=== PATIENT | female | born 1940 | race Caucasian/White ===

== ENCOUNTER 2017-03-31 15:35 | Emergency (ER) | payer OTHER ==
[2017-03-31 15:45] VITALS: BP 129/66; PULSE 66; TEMP 98.1; BMI 32.5
--- NOTE | 2017-03-31 16:04 | PDOC ---
History of Present Illness - General History Source: Patient Exam Limitations: No Limitations - History of Present Illness Initial Comments: 03/31/17 16:17 76 y/o F with a PMHx of arthritis, HLD, hypothyroidism presents to the ED with right posterior knee pain for a week. Patient states that the pain wakes her up 3-4 times a night. She states the pain is constant. She reports it occasionally radiates down her right calf. She also reports the pain is worse after she is immobile for a while and then moves. She reports taking Tylenol with no relief, and Aleve with some relief. She states she went to urgent care last night for the pain, and they told her to come to the ED to rule out DVT. She attempted to call her PCP and her knee doctor, but both were away so she decided to come to the ED today. She denies swelling, redness. She denies recent travel. She denies injury to the knee. Denies chest pain, SOB, headache. PCP: Dr. Allan Perdomo <Lisandra Henning - Last Filed: 03/31/17 17:15> <Gabriel Moncada - Last Filed: 03/31/17 17:29> - General Chief Complaint: Pain Stated Complaint: PAIN BEHIND RT KNEE Time Seen by Provider: 03/31/17 15:44 Past History <Lisandra Henning - Last Filed: 03/31/17 17:15> - Past Medical History Anemia: No Asthma: No Cancer: No Cardiac Disorders: No CVA: No COPD: No CHF: No Dementia: No Diabetes: No GI Disorders: Yes (GERD) Disorders: No HTN: No Hypercholesterolemia: Yes Liver Disease: No Seizures: No Thyroid Disease: Yes (HYPOTHYROIDISM) Other medical history: ARTHRITIS RT KNEE, BACK PAIN - Surgical History Abdominal Surgery: Yes Appendectomy: Yes (2007) Cardiac Surgery: No Cholecystectomy: No Lung Surgery: No Neurologic Surgery: No Orthopedic Surgery: Yes (DUPYTREN'S SX BILATERAL HANDS 2011) - Psycho/Social/Smoking Cessation Hx Suicidal Ideation: No Smoking History: Former smoker Have you smoked in the past 12 months: No Number of Cigarettes Smoked Daily: 0 If you are a former smoker, when did you quit?: 1999 Information on smoking cessation initiated: No Hx Alcohol Use: No Drug/Substance Use Hx: No Substance Use Type: Alcohol Hx Substance Use Treatment: No <GreggzarinaVinnie [email or web address] - Last Filed: 03/31/17 17:29> - Past Medical History Allergies/Adverse Reactions: Allergies Allergy/AdvReac Type Severity Reaction Status Date / Time No Known Drug Allergies Allergy Verified 03/31/17 15:36 Home Medications: Ambulatory Orders Levothyroxine [Synthroid -] 112 mcg PO DAILY 09/11/14 Omeprazole [Prilosec (RX)] 20 mg PO BID 09/11/14 Simvastatin [Zocor] 80 mg PO HS 09/11/14 Alendronate Na [Fosamax (Weekly)] 70 mg PO Q7D 03/31/17 Aspirin [Aspirin EC] 81 mg PO DAILY 03/31/17 Citalopram Hydrobromide [Celexa -] 20 mg PO DAILY 03/31/17 Gabapentin [Neurontin] 800 mg PO BID 03/31/17 Naproxen [Naprosyn -] 500 mg PO BID #20 tablet 03/31/17 Tramadol HCl [Ultram] 50 mg PO BID PRN #10 tablet MDD 2 03/31/17 Venlafaxine HCl ER [Effexor Xr -] 37.5 mg PO DAILY 03/31/17 Review of Systems - Review of Systems Constitutional: No: Chills, Fever Respiratory: No: Cough, Shortness of Breath Cardiac (ROS): No: Chest Pain, Palpitations Musculoskeletal: Yes: Joint Pain Neurological: No: Tingling, Weakness <Vinnie Moncadafaele - Last Filed: 03/31/17 17:29> *Physical Exam - Vital Signs Last Vital Signs Temp Pulse Resp BP Pulse Ox 98.1 F 66 18 129/66 97 03/31/17 15:35 03/31/17 15:35 03/31/17 15:35 03/31/17 15:35 03/31/17 15:35 - Physical Exam Comments: 03/31/17 16:17 GENERAL: The patient is awake, alert, and fully oriented, in no acute distress. Well-appearing. HEAD: Normal with no signs of trauma. EYES: Pupils equal, round and reactive to light, extraocular movements intact, sclera anicteric, conjunctiva clear with no pallor. ENT: Ears normal, nares patent, oropharynx clear without exudates. Moist mucous membranes. NECK: Normal range of motion, supple without lymphadenopathy, JVD, or masses. LUNGS: Breath sounds equal, clear to auscultation bilaterally. No wheeze/ crackles. HEART: Regular rate and rhythm, normal S1 and S2 without murmur or rub. ABDOMEN: Soft/nontender/nondistended. BS wnl. No guarding or rebound. No palpable masses. No hepatosplenomegaly. EXTREMITIES: small right knee, no warmth or erythema, no focal bony tenderness, but some discomfort along joint space, full ROM, full strength NEUROLOGICAL: Cranial nerves II through XII grossly intact. Normal speech, normal gait. PSYCH: Normal mood, normal affect. SKIN: Warm, Dry, normal turgor, no rashes or lesions noted. <Lisandra Henning - Last Filed: 03/31/17 17:15> - Vital Signs Last Vital Signs Temp Pulse Resp BP Pulse Ox 98.1 F 66 18 129/66 97 03/31/17 15:35 03/31/17 15:35 03/31/17 15:35 03/31/17 15:35 03/31/17 15:35 <Gabriel Moncada - Last Filed: 03/31/17 17:29> ED Treatment Course - RADIOLOGY Radiograph Interpretation: 03/31/17 17:06 Right Knee X-Ray Reported by Dr. Sylvie Hall Impression: Worsening degenerative changes in the right knee joint, as described above with a small suprapatellar joint 03/31/17 17:15 Duplex US - 1 Leg (Right) Reported by Dr. Sylvie Hall Impression: There is no evidence of deep venous thromboses in the right lower extremity. <Lisandra Henning - Last Filed: 03/31/17 17:15> Medical Decision Making - Medical Decision Making 03/31/17 17:03 76-year-old female with history of arthritis presents with atraumatic right knee pain for one week. Pain primarily localized to the posterior knee, was taking Tylenol and Aleve with only temporary relief, seen at urgent care yesterday and recommended Doppler to rule out DVT, presents for evaluation today. No risk factors for DVT or history of DVT, denies any recent strain or injury, last steroid injection for arthritis was in January. No other leg swelling , no motor or sensory deficits. Afebrile. Well-appearing. Right knee with small effusion, joint space discomfort to palpation without focal bony tenderness or deformity. Full range of motion otherwise with full strength, no overlying warmth or cellulitis. swelling or tenderness, neurovascularly intact distally. 76-year-old female with atraumatic right knee pain, seems most consistent with arthritis flare with effusion, no evidence of infected joint. We'll rule out Mccoy cyst or DVT, rule out acute bony abnormality. X-ray shows progression of arthritis with small effusion, no fracture or dislocation. Duplex pending. Naproxen for pain control Dispo accordingly 03/31/17 17:20 Doppler negative for Mccoy's cyst or DVT. Course of naproxen as an anti-inflammatory, tramadol for pain, ice and elevation with orthopedics follow-up. Understands return criteria. <Gabriel Moncada - Last Filed: 03/31/17 17:29> *DC/Admit/Observation/Transfer - Attestations Scribe Attestion: 03/31/17 16:18 Documentation prepared by Lisandra Henning, acting as medical center director for Gabriel Moncada MD. <Lisandra Henning - Last Filed: 03/31/17 17:15> <Gabriel Moncada - Last Filed: 03/31/17 17:29> Diagnosis at time of Disposition: Arthritis of right knee, Knee effusion, right - Discharge Dispostion Disposition: HOME Condition at time of disposition: Stable - Prescriptions Prescriptions: Naproxen [Naprosyn -] 500 mg PO BID #20 tablet Tramadol HCl [Ultram] 50 mg PO BID PRN #10 tablet MDD 2 PRN Reason: Pain - Referrals Referrals: Allan Perdomo MD [Primary Care Provider] - - Patient Instructions Printed Discharge Instructions: DI for Osteoarthritis Additional Instructions: Activity as tolerated, stay hydrated. X-rays showed evidence of worsening arthritis with some fluid in the joint. An ultrasound showed no evidence of a clot. Ice and elevate the right knee every 2-3 hours to reduce swelling, taken naproxen 500 mg twice daily as prescribed with food for 5 days, then as needed for pain. Take tramadol as prescribed as needed for severe pain. Tramadol can make you lightheaded, so take proper precautions. Follow-up with Dr. Carcamo and your orthopedic, Dr. Boswell, as soon as possible regarding today's emergency department visit. Return to the emergency department sooner for any new or concerning symptoms, including severe swelling or pain, complete joint stiffness, fevers or chills, numbness or tingling or discoloration.
[2017-03-31] MEDS ORDERED: NAPROXEN 500 MG TABLET (FP) PO ONE (16:06)
[2017-03-31] MEDS ORDERED: NAPROXEN 500 MG TABLET (FP) ONE (16:11)
== END 2017-03-31 17:37 | disposition home or self-care (01) ==
LOC: FER 15:35
DX: E78.5 Hyperlipidemia, unspecified (principal); E03.9 Hypothyroidism, unspecified; K21.9 Gastro-esophageal reflux disease without esophagitis
CPT/HCPCS: 73560-TC-RT; 93971-TC; 99282-25

== ENCOUNTER 2019-02-08 06:26 | Day surgery (SDC) | payer OTHER ==
[2019-01-27 17:34] VITALS: BMI 33.7
[2019-02-08] MEDS ORDERED: OFLOXACIN 0.3% OPHTHALMIC SOLUTION 5 ML BOTTLE ONE (06:42)
[2019-02-08] MEDS ORDERED: CYCLOPENTOLATE HCL 1% OPHTH SOLN 2 ML BOTTLE ONE (06:42)
[2019-02-08] MEDS ORDERED: KETOROLAC TROMETHAMINE 0.5% EYE DROP 1 DROP DROPS ONE (06:42)
[2019-02-08] MEDS ORDERED: TROPICAMIDE 1% OPHTH SOLN 15 ML BOTTLE ONE (06:43)
[2019-02-08] MEDS ORDERED: PHENYLEPHRINE 2.5% OPHTH SOLN 15 ML BOTTLE ONE (06:43)
[2019-02-08] MEDS: PHENYLEPHRINE 2.5% OPHTH SOLN 15 ML BOTTLE OD SCH ×5 (07:10→07:30)
[2019-02-08] MEDS: OFLOXACIN 0.3% OPHTHALMIC SOLUTION 5 ML BOTTLE OD SCH ×5 (07:10→07:30)
[2019-02-08] MEDS: CYCLOPENTOLATE HCL 1% OPHTH SOLN 2 ML BOTTLE OD SCH ×5 (07:10→07:30)
[2019-02-08] MEDS: TROPICAMIDE 1% OPHTH SOLN 15 ML BOTTLE OD SCH ×5 (07:10→07:30)
[2019-02-08] MEDS: KETOROLAC TROMETHAMINE 0.5% EYE DROP 1 DROP DROPS OD SCH ×5 (07:10→07:30)
[2019-02-08] MEDS ORDERED: EPI-SHUGARCAINE (EPINEPHRINE 0.025% & LIDOCAINE-PF 0.75%) 4ML ONE (07:16)
[2019-02-08] MEDS ORDERED: BETAXOLOL HCL 0.25% OPHTHALMIC 10 ML DROPSBTL ONE (07:16)
[2019-02-08] MEDS ORDERED: BACITRACIN/POLYMYXIN OPH OINT 3.5 GM TUBE ONE (07:16)
[2019-02-08] MEDS ORDERED: ACETYLCHOLINE 1:100 INTRA-OCUL 20 MG/2 ML KIT ONE (07:17)
[2019-02-08] MEDS ORDERED: POVIDONE-IODINE 5% OPHTHALMIC PREP 30 ML SOLUTION ONE (07:17)
[2019-02-08] MEDS ORDERED: NEO/POLYMYX B SULF/DEXAMETH OPHTHALMIC 5ML BOTTLE ONE (07:17)
[2019-02-08] MEDS ORDERED: TETRACAINE 0.5% OPHTH SOLN 2 ML BOTTLE ONE (07:17)
[2019-02-08] MEDS ORDERED: EPINEPHrine/PF 1 MG/1 ML (1:1,000) AMPULE ONE (07:18)
[2019-02-08] MEDS ORDERED: MIDAZOLAM HCL 2 MG/2 ML SINGLE DOSE VIAL ONE (07:44)
[2019-02-08] MEDS ORDERED: ACETAMINOPHEN 325 MG TABLET (FP) PO PRN (09:05)
[2019-02-08 09:59] VITALS: BP 121/56; PULSE 68; TEMP 98
--- NOTE | 2019-02-08 10:23 | OP ---
DATE OF OPERATION: 02/08/2019 PREOPERATIVE DIAGNOSIS: Cataract, right eye. POSTOPERATIVE DIAGNOSIS: Cataract, right eye. PROCEDURE: Cataract extraction via phacoemulsification with insertion of posterior chamber lens implant, right eye. SURGEON: Octavio Infante MD COLOR SEPARATION PHOTOGRAPHER: Allison Reyna MD ANESTHESIA: Topical with sedation. ESTIMATED BLOOD LOSS: Less than 1 mL. COMPLICATIONS: None. SPECIMENS: None. DESCRIPTION OF PROCEDURE: The patient was identified in the holding area. After all risks, benefits, and alternatives were explained to the patient, informed consent was obtained. The right eye was marked with a marking pen. The patient then entered the operating room on an eye stretcher. After a formal time-out was performed, topical tetracaine eye drops were instilled onto the right eye. The right eye was then prepped and draped in the usual sterile fashion. An eyelid speculum was placed beneath the eyelids of the right eye. A superotemporal paracentesis incision was created using a 15-degree blade. Topical preservative-free epinephrine and preservative-free lidocaine were then injected into the anterior chamber. Viscoelastic was then injected into the anterior chamber. A 2.4-mm keratome blade was then used to make a inferotemporal incision, and a 360-degree continuous curvilinear capsulorrhexis was then created using bent cystotome and Utrata forceps. Hydrodissection was performed using balanced saline solution on a cannula. Phacoemulsification was introduced to disassemble and remove the nucleus in its entirety. Irrigation/aspiration was then used to remove any remaining cortical material from the eye. Capsular bag was reformed using viscoelastic. An Damon model [id number] with a power of 22.5 diopters, serial number [id number], was inspected and found to be defect-free and injected into the capsular bag. Irrigation/aspiration was then used to remove any remaining viscoelastic from the eye. The anterior chamber was reformed using balanced saline solution. Intracameral injection of Miochol was then administered, and the pupil came down and was round. All wounds were hydrated with balanced saline solution, noted to be watertight. There was a red reflex present. The anterior chamber was deep. The lens was perfectly centered in the capsular bag, and the eye had a red reflex, and the eye had an adequate pressure. Topical antibiotic eye drops and ointment were then administered to the right eye. The eyelid speculum was removed from the right eye. The right eye was shielded. The patient tolerated the procedure well and left the operating room in stable condition to follow up in the eye clinic tomorrow morning at 10:00. OCTAVIO INFANTE M.D. [id number]
== END 2019-02-08 10:03 | disposition home or self-care (01) ==
LOC: FASU 06:26
PROVIDERS: ATTEND Ophthalmology
PROC: 08RJ3JZ Replacement of Right Lens with Synthetic Substitute, Percutaneous Approach (ICD-10-PCS; principal; 2019-02-08 08:34)
DX: H26.9 Unspecified cataract (principal)
CPT/HCPCS: 82962

== ENCOUNTER 2021-02-26 08:39 | Day surgery (SDC) | payer OTHER ==
[2021-02-25 14:48] VITALS: BMI 33.1
[2021-02-26] MEDS ORDERED: CYCLOPENTOLATE HCL 1% OPHTH SOLN 2 ML BOTTLE ONE (08:48)
[2021-02-26] MEDS ORDERED: TROPICAMIDE 1% OPHTH SOLN 15 ML BOTTLE ONE (08:49)
[2021-02-26] MEDS ORDERED: KETOROLAC TROMETHAMINE 0.5% EYE DROP 1 DROP DROPS ONE (08:49)
[2021-02-26] MEDS ORDERED: OFLOXACIN 0.3% OPHTHALMIC SOLUTION 5 ML BOTTLE ONE (08:49)
[2021-02-26] MEDS ORDERED: PHENYLEPHRINE 2.5% OPHTH SOLN 15 ML BOTTLE ONE (08:49)
[2021-02-26] MEDS: OFLOXACIN 0.3% OPHTHALMIC SOLUTION 5 ML BOTTLE OS SCH ×5 (09:00→09:20)
[2021-02-26] MEDS: TROPICAMIDE 1% OPHTH SOLN 15 ML BOTTLE OS SCH ×5 (09:00→09:20)
[2021-02-26] MEDS: PHENYLEPHRINE 2.5% OPHTH SOLN 15 ML BOTTLE OS SCH ×5 (09:00→09:20)
[2021-02-26] MEDS: CYCLOPENTOLATE HCL 1% OPHTH SOLN 2 ML BOTTLE OS SCH ×5 (09:00→09:20)
[2021-02-26] MEDS: KETOROLAC TROMETHAMINE 0.5% EYE DROP 1 DROP DROPS OS SCH ×5 (09:00→09:20)
[2021-02-26 09:11] VITALS: TEMP 98.1
[2021-02-26] MEDS ORDERED: MIDAZOLAM HCL 2 MG/2 ML SINGLE DOSE VIAL ONE (09:59)
[2021-02-26] MEDS ORDERED: KETOROLAC TROMETHAMINE 30 MG/1 ML VIAL ONE (09:59)
[2021-02-26] MEDS ORDERED: BETAXOLOL HCL 0.25% OPHTHALMIC 10 ML DROPSBTL ONE (10:02)
[2021-02-26] MEDS ORDERED: BACITRACIN/POLYMYXIN OPH OINT 3.5 GM TUBE ONE (10:02)
[2021-02-26] MEDS ORDERED: TETRACAINE 0.5% OPHTH SOLN 2 ML BOTTLE ONE (10:03)
[2021-02-26] MEDS ORDERED: POVIDONE-IODINE 5% OPHTHALMIC PREP 30 ML SOLUTION ONE (10:03)
[2021-02-26] MEDS ORDERED: NEO/POLYMYX B SULF/DEXAMETH OPHTHALMIC 5ML BOTTLE ONE (10:03)
[2021-02-26] MEDS ORDERED: EPI-SHUGARCAINE (EPINEPHRINE 0.025% & LIDOCAINE-PF 0.75%) 4ML ONE (10:03)
[2021-02-26] MEDS ORDERED: EPINEPHrine/PF 1 MG/1 ML (1:1,000) AMPULE ONE (10:07)
[2021-02-26] MEDS ORDERED: ACETAMINOPHEN 325 MG TABLET (FP) PO PRN (11:05)
[2021-02-26 11:33] VITALS: BP 131/71; PULSE 76
== END 2021-02-26 12:00 | disposition home or self-care (01) ==
LOC: FASU 08:39
PROVIDERS: ATTEND Ophthalmology
PROC: 08RK3JZ Replacement of Left Lens with Synthetic Substitute, Percutaneous Approach (ICD-10-PCS; principal; 2021-02-26 10:35)
DX: H26.9 Unspecified cataract (principal)
CPT/HCPCS: 82962

== ENCOUNTER 2021-12-02 08:26 | Day surgery (SDC) | payer OTHER ==
[2021-11-28 11:48] VITALS: BMI 31.0
[2021-12-02 10:05] VITALS: TEMP 97.5
[2021-12-02 10:30] VITALS: BP 106/65; PULSE 66
== END 2021-12-02 11:00 | disposition home or self-care (01) ==
LOC: MERGE 08:26 → FASU-ENDO 08:26
PROVIDERS: ATTEND Internal Medicine Gastroenterology
PROC: 0DJD8ZZ Inspection of Lower Intestinal Tract, Via Natural or Artificial Opening Endoscopic (ICD-10-PCS; principal; 2021-12-02 09:40)
DX: Z12.11 Encounter for screening for malignant neoplasm of colon (principal); Z83.71 Family history of colonic polyps
CPT/HCPCS: 82962

== ENCOUNTER 2024-06-06 10:35 | Day surgery (SDC) | payer OTHER ==
[2024-06-03 11:56] VITALS: BMI 28.8
[2024-06-06 12:59] VITALS: RESP 18; TEMP 97
[2024-06-06 13:03] VITALS: BP 138/68; PULSE 78
== END 2024-06-06 13:24 | disposition home or self-care (01) ==
LOC: FASU-ENDO 10:35
PROVIDERS: ATTEND Internal Medicine Gastroenterology
PROC: 0DB78ZX Excision of Stomach, Pylorus, Via Natural or Artificial Opening Endoscopic, Diagnostic (ICD-10-PCS; 2024-06-06)
PROC: 0DB68ZX Excision of Stomach, Via Natural or Artificial Opening Endoscopic, Diagnostic (ICD-10-PCS; principal; 2024-06-06 12:14)
DX: K29.70 Gastritis, unspecified, without bleeding (principal); K44.9 Diaphragmatic hernia without obstruction or gangrene
CPT/HCPCS: 82962; 88305-TC; 88342-TC